=== PATIENT | male | born 1960 | race Caucasian/White ===

== ENCOUNTER 2016-06-08 23:51 | Emergency (ER) | payer MEDICAID ==
[2016-06-09 02:14] VITALS: BP 157/78
== END 2016-06-09 02:14 | disposition home or self-care (01) ==
LOC: ED 23:51
DX: J45.909 Unspecified asthma, uncomplicated (principal)
CPT/HCPCS: J7620

== ENCOUNTER 2016-11-01 14:51 | Emergency (ER) | payer SELFPAY ==
[2016-11-01 17:32] VITALS: BP 140/86
== END 2016-11-01 18:02 | disposition home or self-care (01) ==
LOC: ED 14:51
DX: S61.213A Laceration without foreign body of left middle finger without damage to nail, initial encounter (principal); S61.215A Laceration without foreign body of left ring finger without damage to nail, initial encounter; R03.0 Elevated blood-pressure reading, without diagnosis of hypertension; X58.XXXA Exposure to other specified factors, initial encounter; Y93.89 Activity, other specified; Y99.8 Other external cause status; Y92.89 Other specified places as the place of occurrence of the external cause
CPT/HCPCS: 90715; J2001; Q0092